=== PATIENT | male | born 1945 | race Caucasian/White ===

== ENCOUNTER 2016-04-06 06:55 | Outpatient (CLI) | payer MEDICARE, BC ==
[~2016-04-06] VITALS: Ht 185.4 cm; Wt 93.2 kg
--- NOTE | ~2016-04-06 | HEMODYNAMI ---
PATIENT:HILL JOYCE MEDICAL RECORD: [id number] : 43 LOCATION:D.CAT ADMISSION DATE: 04/06/16 Generatedon:04/06/201610:14 Patient name: HILL JOYCE Patient #: [id number] SSN: [id number] : 1945 Date of study: 04/06/2016 Page: Of Hemodynamic Procedure Report Patient Data Patient Demographics Procedure consent was obtained First Name: HILL Gender: Male Last Name: MARIA DEL CARMEN : 1945 [facility] Initial: C Age: 71 year(s) Patient #: [id number] Race: Unknown SSN: [id number] Additional ID: [id number] Contact details Address: [address] [place] [address] State: [place] City: [place] Zip code: [address] Past Medical History Allergies: No known allergies Admission Admission Data Admission Date: 04/06/2016 Admission Time: 6:55 Arrival Date: 04/06/2016 Arrival Time: 0:00 Admit Source: Other Height (in.): 73 BSA: 2.19 (m2) Height (cm.): 185.42 BMI: 27.44 (kg/m2) Weight (lbs.): 208 Weight (kg.): 94.35 Lab Results Lab Result Date: 04/06/2016 Lab Result Time: 0:00 Biochemistry Name Units Result Min Max BUN mg/dl 16 --(---*)-- 7 18 Creatinine mg/dl 1.2 --(---*)-- 0.6 1.3 CBC Name Units Result Min Max Hemoglobin g/dl 13.4 -*(----)-- 13.5 17.5 Procedure Procedure Types Cath Procedure Diagnostic Procedure LHC LHC w/Coronaries w/Grafts PCI Procedure Coronary Stent Initial Miscellaneous Procedures Moderate Sedation up to 15 minutes Procedure Description Procedure Date Procedure Date: 04/06/2016 Procedure Start Time: 9:41 Procedure End Time: 10:13 Procedure Staff Name Function Diego Gilliland MD Performing Physician Katina Lopez RT Scrub Jennifer Watt RN Nurse Lobito Weinstein RT Pan Tank Worker Shannan Dunlap RT Monitor Procedure Data Cath Procedure Fluoroscopy Diagnostic fluoroscopy Total fluoroscopy Time: 7.6 time: 7.6 min min Diagnostic fluoroscopy Total fluoroscopy dose: 408 dose: 408 mGy mGy Contrast Material Contrast Material Type Amount (ml) Isovue 300 133 Entry Location Entry Primary Successful Side Size Upsize Upsize Entry Closure Succes sful Closure Location (Fr) 1 (Fr) 2 (Fr) Remarks Device Remarks Femoral Right 5 Fr 6 Fr Exoseal artery Short Estimated blood loss: 10 ml Diagnostic catheters Device Type Used For End Catheter Placement Cordis 5Fr JL 4.0 Procedure Catheter (MP) Diagnostic Infinity 5Fr Procedure IM catheter Diagnostic Infinity 5Fr Procedure AR MOD Catheter Cordis 5Fr Pigtail LV Angiography Catheter (MP) Procedure Complications No complications Procedure Medications Medication Administration Route Dosage Oxygen NC 2 l/min Heparin Flush Bag added to field 2 bags (1000units/500ml NS) Lidocaine 2% added to field 20 Fentanyl I.V. Versed I.V. 1 mg Fentanyl I.V. 50 mcg Versed I.V. 1 mg Fentanyl I.V. 25 mcg Versed I.V. 0.5 mg Fentanyl I.V. 25 mcg Versed I.V. 0.5 mg Fentanyl I.V. 25 mcg Versed I.V. 0.5 mg Heparin Bolus I.V. 9300 units Fentanyl I.V. 25 mcg Versed I.V. 0.5 mg Plavix P.O. 600 mg Hemodynamics Rest BSA: 2.19 (m2) HGB: 13.4 (g/dl) O2 Consumption: Estimated: 233.43 (ml/min) O2 Co nsumption indexed: Estimated:106.59 (ml/min/m) Heart Rate: 47 (bpm) Pressure Samples Time Site Value (mmHg) Purpose Heart Use Rate(bpm) 9:54 LV 126/9,25 Snapshot 54 9:54 AO 140/58(94) Pullback 55 9:54 LV 132/13,30 Pullback 55 Gradients Valve Time Site 1 Site 2 Mean SEP/DFP Peak To Heart Use (mmHg) (sec/min) Peak Rate (mmHg) (bpm) Aortic 9:54 LV AO 0 20 0 55 132/13,30 140/58(94) Calculations Valve P-P Mean Valve Index Valve Source Name Gradient Area Flow (cm2) Aortic 0 0 0 0 Snapshots Pre Cath Intra NCS Post Cath Vital Signs Time Heart Resp SPO2 NIBP (mmHg) Rhythm Pain Sedation Rate (ipm) (%) Status Level (bpm) 9:12:08 46 19 98 143/84(101) NSR 0 (11) 10(A) , No pain 9:16:31 46 18 97 124/73(92) NSR 0 (11) 10(A) , No pain 9:20:44 48 16 93 120/72(85) NSR 0 (11) 9(A) , No pain 9:24:56 49 19 98 124/72(87) NSR 0 (11) 9(A) , No pain 9:29:10 49 17 98 125/72(82) NSR 0 (11) 9(A) , No pain 9:34:05 49 18 98 118/70(83) NSR 0 (11) 9(A) , No pain 9:38:21 48 19 98 132/65(90) NSR 0 (11) 9(A) , No pain 9:42:43 49 17 98 123/63(89) NSR 0 (11) 9(A) , No pain 9:46:59 54 16 96 114/68(88) NSR 0 (11) 9(A) , No pain 9:51:09 55 16 96 123/71(88) NSR 0 (11) 9(A) , No pain 9:56:00 54 17 97 130/71(84) NSR 0 (11) 9(A) , No pain 10:00:16 54 16 96 117/66(79) NSR 0 (11) 9(A) , No pain 10:04:32 56 18 97 111/57(80) NSR 0 (11) 9(A) , No pain 10:08:46 55 17 93 115/61(80) NSR 0 (11) 9(A) , No pain 10:13:00 55 7 95 113/59(87) NSR 0 (11) 9(A) , No pain Medications Time Medication Route Dose Verified Delivered Reason Notes Effectiveness by by 9:13:42 Oxygen NC 2 Jennifer Jennifer used for l/min Watt Watt white sidewall tire buffer RN 9:13:50 Heparin Flush added 2 Jennifer Jennifer used for Bag to bags Watt Watt procedure (1000units/500ml RN RN NS) 9:13:58 Lidocaine 2% added 20ml Jennifer Jennifer used for to vial Watt Watt procedure RN RN 9:23:12 Fentanyl I.V. Jennifer Jennifer for sedation Shukri Watt RN RN 9:23:18 Versed I.V. 1 mg Jennifer Jennifer for sedation Shukri Watt RN RN 9:38:13 Fentanyl I.V. 50 Jennifer Jennifer for sedation mcg Shukri Watt RN RN 9:38:17 Versed I.V. 1 mg Jennifer Jennifer for sedation Shukri Watt RN RN 9:40:54 Fentanyl I.V. 25 Jennifer Jennifer for sedation mcg Shukri Watt RN RN 9:40:57 Versed I.V. 0.5 Jennifer Jennifer for sedation mg Shukri Watt RN RN 9:43:32 Fentanyl I.V. 25 Jennifer Jennifer for sedation mcg Shukri Watt RN RN 9:43:36 Versed I.V. 0.5 Jennifer Jennifer for sedation mg Shukri Watt RN RN 9:58:34 Fentanyl I.V. 25 Jennifer Jennifer for sedation mcg Shukri Watt RN RN 9:58:37 Versed I.V. 0.5 Jennifer Jennifer for sedation mg Shukri Watt RN RN 9:59:13 Heparin Bolus I.V. 9300 Jennifer Jennifer for verifi ed units Shukri Watt anticoagulation with RN MYRIAM gilliland 10:05:43 Fentanyl I.V. 25 Jennifer Jennifer for sedation mcg Shukri Watt RN RN 10:05:51 Versed I.V. 0.5 Jennifer Jennifer for sedation mg Shukri Watt RN RN 10:10:57 Plavix P.O. 600 Jennifer Jennifer for mg Shukri Watt antiplatelet RN RN therapy Procedure Log Time Note 9:00:39 Lobito Weinstein RT(R) sent for patient. Start room use. 9:06:19 Diagnostic Cath Status : Elective 9:06:46 Time tracking: Regular hours 9:06:50 Plan of Care:Hemodynamics will remain stable., Cardiac rhythm will remain stable., Comfort level will be maintained., Respiratory function will remain adequate., Patient/ family verbilizes understanding of procedure., Procedure tolerated without complication., Recovers from procedure without complications.. 9:07:14 Patient received from Pre/Post Procedure Room to CCL 2 Alert and oriented. Tansferred to table in Supine position. 9:07:15 Warm blankets applied, and sahnia hugger turned on for patient comfort. 9:07:15 Correct patient and procedure confirmed by team. 9:07:17 Signed procedure consent form obtained from patient. 9:07:19 ECG and BP/O2 sat monitors applied to patient. 9:10:54 Vital chart was started 9:10:56 Baseline sample Acquired. 9:11:01 Rhythm: sinus rhythm 9:11:03 Full Disclosure recording started 9:12:01 H&P Date Dictated: 03/30/2016 Within 30 days and on chart., H&P Addendum completed by physician on day of procedure. (MUST COMPLETE FOR ALL OUTPATIENTS). 9:12:06 Pre-procedure instructions explained to patient. 9:12:08 Pre-op teaching completed and patient verbalized understanding. 9:12:09 Family in waiting room. 9:12:11 Patient NPO since Midnight. 9:12:20 Patient allergic to No known allergies 9:12:29 Is the patient allergic to Iodine/contrast media? No. 9:12:32 Is patient on blood thinner?Yes 9:12:35 ACC The patient was administered the following blood thiners within the last 24 hours: ACCAspirin 9:12:37 Patient diabetic? No. 9:12:40 Snore? Yes 9:12:43 Sleep apnea? No 9:12:53 Patient pain scale 0/10 ?. 9:13:07 IV patent on arrival in left hand with 0.9% NaCl at KVO. 9:13:20 Lab results completed and on chart. 9::42 Oxygen 2 l/min NC was given by Jennifer Watt RN; used for procedure; 9::42 Lab Result : BUN 16 mg/dl 9::42 Lab Result : Hemoglobin 13.4 g/dl 9::42 Lab Result : Creatinine 1.2 mg/dl 9:13:47 Right groin area was prepped with chlora-prep and draped in sterile fashion 9:13:49 Alarms reviewed by R. N. 9:13:49 Sharps counted by scrub and verified by R.N. 9:13:50 Heparin Flush Bag (1000units/500ml NS) 2 bags added to field was given by Jennifer Watt RN; used for procedure; 9:13:52 Physician arrived 9:13:54 --------ALL STOP TIME OUT------ 9:13:55 Final Timeout: patient, procedure, and site verified with staff and physician. All members of the team are in agreement. 9:13:57 Right groin site verified by team. 9:13:58 Lidocaine 2% 20ml vial added to field was given by Jennifer Watt RN; used for procedure; 9:14:01 Physical assessment completed. ASA score P 2 - A patient with mild systemic disease as per Diego Gilliland MD. 9:14:06 Sedation plan: IV Moderate Sedation Versed, Fentanyl 9:14:12 Use device set Femoral Dx 9:16:01 Acist Syringe opened to sterile field. 9:16:02 Bag Decanter opened to sterile field. 9:16:02 Medline Cath Pack opened to sterile field. 9:16:03 Terumo 5Fr Runnells Sheath opened to sterile field. 9:16:04 St Pavel 260cm J .035 wire opened to sterile field. 9:16:08 Acist Hand Control opened to sterile field. 9:16:09 Acist Manifold opened to sterile field. 9:16:09 Diagnostic Infinity 5Fr Multipack catheter opened to sterile field. 9:16:11 Tegaderm 4 x 4 opened to sterile field. 9:20:39 Patient Height : 185.42 inches 9:20:44 Patient Weight : 94.35 lbs 9:20:45 Admit Source: Other 9:20:47 Arrival Date: 04/06/2016 12:00:00 AM 9:21:13 Procedure type changed to Cath procedure, Diagnostic procedure, LHC, LHC w/Coronaries w/Grafts, PCI procedure, Coronary Stent Initial, Miscellaneous Procedures, Moderate Sedation up to 15 minutes 9:23:12 Fentanyl I.V. was given by Jennifer Watt RN; for sedation; 9:23:18 Versed 1 mg I.V. was given by Jennifer Watt RN; for sedation; 9:24:08 Zero performed for pressure channel P1 9:25:17 Zero performed for pressure channel P1 9:38:13 Fentanyl 50 mcg I.V. was given by Jennifer Watt RN; for sedation; 9:38:17 Versed 1 mg I.V. was given by Jennifer Watt RN; for sedation; 9:40:39 Procedure started. 9:40:54 Fentanyl 25 mcg I.V. was given by Jennifer Watt RN; for sedation; 9:40:57 Versed 0.5 mg I.V. was given by Jennifer Watt RN; for sedation; 9:41:29 Local anesthetic to right femoral artery with Lidocaine 2% by Diego Gilliland MD.INITIAL ACCESS ONLY 9:41:40 A 5 Fr sheath was inserted into the Right Femoral artery 9:43:32 Fentanyl 25 mcg I.V. was given by Jennifer Watt RN; for sedation; 9:43:36 Versed 0.5 mg I.V. was given by Jennifer Watt RN; for sedation; 9:44:53 J wire advanced. 9:45:40 A Cordis 5Fr JL 4.0 Catheter (MP) was advanced over the wire and used for Procedure. 9:45:45 LCA angiography performed. 9:46:18 Catheter removed. 9:46:25 A Diagnostic Infinity 5Fr IM catheter was advanced over the wire and used for Procedure. 9:46:32 MONTENEGRO to LAD angiography performed. 9:48:38 Catheter removed. 9:49:05 A Diagnostic Infinity 5Fr AR MOD Catheter was advanced over the wire and used for Procedure. 9:50:16 RCA angiography performed. 9:50:28 ACCDominant side:Left 9:51:25 SVG to OM angiography performed. 9:52:22 Catheter removed. 9:53:00 A Cordis 5Fr Pigtail Catheter (MP) was advanced over the wire and used for LV Angiography. 9:53:06 LV gram done using PECK 9:54:41 EF : 50 % 9:55:26 Catheter removed. 9:55:39 Merit BasixCompak Inflation Kit opened to sterile field. 9:55:40 Terumo 6Fr Runnells Sheath opened to sterile field. 9:55:40 Medtronic Launcher 6Fr AR 1.0 guide catheter opened to sterile field. 9:55:40 Shaw BMW [place] 2 J-tip 300cm 0.014 guide wir opened to sterile field. 9:55:45 Right Heart 9:55:54 Sheath upsized to a 6 Fr Short. 9:56:08 6 Fr AR 1 guide catheter was inserted over the wire 9:56:18 [facility] wire advanced. 9:58:34 Fentanyl 25 mcg I.V. was given by Jennifer Watt RN; for sedation; 9:58:37 Versed 0.5 mg I.V. was given by Jennifer Watt RN; for sedation; 9:59:13 Heparin Bolus 9300 units I.V. was given by Jennifer Watt RN; for anticoagulation; verified with dr. gilliland 10:03:33 Inflation Number: 1 A Medtronic Integrity 3.0 X 18 stent was prepped and advanced across the Dist CX. The stent was deployed at 12 CURTIS for 0:17 (min:sec). 10:05:43 Fentanyl 25 mcg I.V. was given by Jennifer Watt RN; for sedation; 10:05:51 Versed 0.5 mg I.V. was given by Jennifer Watt RN; for sedation; 10:06:00 Stent catheter was removed intact over wire. 10:07:22 Inflation Number: 1 A Medtronic Integrity 3.0 X 18 stent was prepped and advanced across the Mid CX. The stent was deployed at 15 CURTIS for 0:16 (min:sec). 10:07:38 Stent catheter was removed intact over wire. 10:08:40 Wire removed. 10:08:43 Guide catheter removed. 10:08:54 Cordis 6Fr Exoseal opened to sterile field. 10:09:07 Sheath removed intact; hemostasis achieved with Exoseal to the Right Femoral artery. 10:09:28 Procedure ended.(Physican Out) 10:10:24 Fluoroscopy time 07.60 minutes. 10:10:30 Fluoroscopy dose: 408 mGy 10:10:30 Flurop Dose total: 408 10:10:34 Contrast amount:Isovue 300 133ml. 10:10:35 Sharps counted by scrub and verified by R.N. 10:10:37 Insertion/operative site no bleeding no hematoma. 10:10:41 Post-op/insertion site Right Femoral artery dressed using a 4 x 4 and Tegaderm. 10:10:43 Post Procedure Pulses reassessed and unchanged 10:10:47 Post procedure rhythm: unchanged. 10:10:53 Estimated blood loss: 10 ml 10:10:55 Post procedure instruction explained to patient.Patient verbalizes understanding. 10:10:57 Plavix 600 mg P.O. was given by Jennifer Watt RN; for antiplatelet therapy; 10:11:14 Procedure and supply charges have been captured, reviewed, submitted and are correct. 10:12:43 Procedure Complication : No complications 10:12:47 Vital chart was stopped 10:12:49 See physician's report for complete and final results. 10:12:56 Report given to Outpatients. 10:13:01 Patient transfered to Outpatients with Stretcher. 10:13:03 Procedure ended. 10:13:03 Full Disclosure recording stopped 10:13:10 End room use (Document Last) Intervention Summary Intervention Notes Time ActionType Lesion and Equipment Action# Pressure Duration Attributes Used 10:03:33 Place stent Dist CX Medtronic 1 12 00:17 Integrity 3.0 X 18 stent 10:07:22 Place stent Mid CX Medtronic 1 15 00:16 Integrity 3.0 X 18 stent Device Usage Item Name Manufacture Quantity Catalog Hospital Part Current Minimal L ot# / Number Charge Number Stock Stock Serial# Code Acist Acist 1 21588 [id number] 533763 792824 20 Syringe Medical Systems Inc Bag Microtek 1 2002S 534457 11361 822411 5 DecKeyCAPTCHA [employer] Inc. Medline Cardinal 1 [id number] 152600 35793 328519 5 Cath Pack GroovinAds Terumo 5Fr Terumo 1 [id number] 571818 154367 211700 [address] Pavel 1 094399 954903 242785 931424 30 260cm J .035 wire Acist Hand Acist 1 82206 807031 758563 247737 5 [employer] Inc Acist Acist 1 32746 054613 212614 067832 5 GoLocal24 Medical Systems Inc Diagnostic Cardinal 1 [id number] 212914 95122 182586 30 [facility] 5Fr Multipack catheter Tegaderm 4 3M 1 [id number] 476355 663451 452937 5 x 4 Cordis 5Fr Cardinal 1 236146 5 JL 4.0 Health Catheter (MP) Diagnostic Cardinal 1 [id number] 988791 568527 979156 5 [facility] 5Fr IM catheter Diagnostic Cardinal 1 [id number] 948813 328095 320950 15 [facility] 5Fr AR MOD Catheter Cordis 5Fr Cardinal 1 [id number] 5 Pigtail Health Catheter (MP) Merit Merit 1 [id number] 411246 452843 028704 15 [employer] Inflation Kit Terumo 6Fr Terumo 1 [id number] 556826 563524 489775 40 Runnells Sheath Medtronic Medtronic 1 [id number] 231333 98369 457128 1 Launcher 6Fr AR 1.0 guide catheter Shaw BMW Shaw 1 [id number] 330715 454371 561599 5 [place] 2 Vascular J-tip 300cm 0.014 guide wir Medtronic Medtronic 2 [id number] 071809 260496 147546 1 0 [id number] Integrity 0 [id number] 3.0 X 18 stent Cordis 6Fr Cardinal 1 [id number] 646345 981018 069547 10 [facility] GroovinAds Signature Audit [place] Stage Time Signature Unsigned Intra-Procedure 04/06/2016 Shannan Dunlap 10:14:14 AM RT(R) Signatures Monitor : Shannan Dunlap Signature : RT Date : Time : [facility] [address] [place] [address]
[~2016-04-06 06:55] MED LIST: ASPIRIN325 MG PO; ATROVENT 0.06%15 ML NS; CATAPRES0.1 MG PO; HYDROCODON-ACE1 EAC7 PO; KEPPRA500 MG PO
[2016-04-06] MEDS ORDERED: BAYER CHEWABLE81 MG PO (07:19)
[2016-04-06 07:21] VITALS: Ht 185.4 cm; Wt 93.2 kg
[2016-04-06 07:40] LABS: BASOPHILS 0 % (0.0-2.0); EOSINOPHILS 1.2 % (0-7); HEMATOCRIT 39.7 % (42.0-54.0); HEMOGLOBIN 13.4 g/dL (13.5-17.5); LYMPHOCYTES 37.2 % (15-50); MCH 34.1 pg (26.0-34.0); MCHC 33.8 g/dL (31.0-37.0); MEAN PLATELET VOLUME 9.8 fL (7.4-10.4); MONOCYTES 13.1 % (2-11); NEUTROPHILS 48.5 % (40-80); PLATELET COUNT 145 10x3/uL (130-400); RBC 3.93 10x6/uL (4.20-6.10); RDW 14.2 % (11.5-14.5); WBC 4.3 10x3/uL (4.8-10.8)
[2016-04-06 07:58] LABS: ANION GAP 13.1 mmol/L (8-16); CALCIUM 8.9 mg/dL (8.5-10.1); CARBON DIOXIDE 24.9 mmol/L (21.0-32.0); CREATININE - SERUM 1.2 mg/dL (0.6-1.3)
[2016-04-06] MEDS ORDERED: PLAVIX75 MG PO (10:41)
--- NOTE | 2016-04-06 10:54 | NUR ---
1025 RECEIVED PT FROM ROUTE DELIVERY DRIVER, SEE ADMIT NOTE. PT IS DROWSY, AWAKENS EASILY TO VERBAL STIMULI. DENIES ANY C/O. DRESSING TO RIGHT GROIN IS CDI, NO BLEEDING OR HEMATOMA NOTED AT SITE. PEDAL PULSES PALPABLE, CAP REFILL TO TOES IS BRISK, FEET WARM TO TOUCH. NO FAMILY AT BEDSIDE. CALL LIGHT IN REACH, PT INSTRUCTED TO CALL FOR NEEDS AND VERBALIZES UNDERSTANDING.
--- NOTE | 2016-04-06 10:57 | NUR ---
1040 COLA SERVED PER PT REQUEST. PT DENIES ANY C/O. GROIN REMAINS CDI, NO BLEEDING OR HEMATOMA NOTED. PEDAL PULSES PALPABLE. RR EVEN AND UNLABORED. CALL LIGHT IN REACH.
--- NOTE | 2016-04-06 12:40 | NUR ---
1155 PT DENIES ANY C/O. DRESSING RIGHT GROIN IS CDI, COPY OPERATOR AT BEDSIDE.
--- NOTE | 2016-04-06 12:40 | NUR ---
1055 PT DENIES ANY C/O. RIGHT GROIN REMAINS STABLE WITH NO BLEEDING OR HEMATOMA NOTED. PT LIZZETTE PO FLUIDS WITH NO C/O NAUSEA.
--- NOTE | 2016-04-06 13:29 | NUR ---
1330 PT ALERT, DENIES ANY C/O. DRESSING TO RIGHT GROIN IS CDI, NO BLEEDING OR HEMATOMA NOTED AT SITE. PEDAL PULSES PALPABLE. PT TOLERATING FLUIDS WITH NO C/O, STATES DOES NOT WANT FOOD TRAY AT THIS TIME. CALL LIGHT IN REACH.
--- NOTE | 2016-04-06 14:20 | NUR ---
LEFT FA PIV D/C'D WITH CATHETER INTACT. ASSISTED PT TO SIDE OF BED TO GET DRESSED.
--- NOTE | 2016-04-06 14:25 | NUR ---
UP TO RESTROOM TO VOID.
--- NOTE | 2016-04-06 14:30 | NUR ---
DISCHARGE INSTRUCTIONS GIVEN. PT VERBALIZED UNDERSTANDING.
--- NOTE | 2016-04-06 14:32 | NUR ---
PT TAKEN OUT BY WHEELCHAIR BY CATH HOOKER MACHINE TENDER. LEFT FACILITY WITH FAMILY MEMBER AND ALL PERSONAL BELONGINGS.
--- NOTE | 2016-05-02 08:17 | OP ---
PATIENT NAME: HILL JOYCE MEDICAL RECORD: [id number] :43 LOCATION:D.CAT ADMISSION DATE: SURGEON: BILL PENN M.D. DATE OF OPERATION: 04/06/2016 Catheterization Report PROCEDURES PERFORMED: 1. Selective coronary angiography. 2. Left heart catheterization with ventriculogram. 3. Bypass angiography. 4. Left internal mammary injection. 5. PTCA and stent placement of the vein graft to the obtuse marginal branch. 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 REFERRING PHYSICIAN: Amish Peraza MD EQUIPMENT USED: Diagnostic 5-Nigerian JL4, AR modified catheter, mammary catheter, pigtail catheter. INTERVENTION: A 6-Nigerian AR1 guide, BMW guidewire, 3.0 x 18 mm Integrity stent, 3.0 x 18 mm Integrity stent. TECHNIQUE: A 5-Nigerian sheath was inserted in retrograde fashion in the right common femoral artery. Next, selective coronary angiography was performed in standard 5-Nigerian JL4 and AR modified catheters. Bypass angiography was performed using the AR modified catheter. Left heart catheterization was performed using pigtail catheter. The internal mammary was selected with internal mammary catheter. CORONARY ANATOMY: 1. Left main: Left main trunk is moderate in caliber. It gives rise to the LAD and circumflex. It has no obstruction. 2. LAD: This vessel is 100% occluded in the proximal segment. 3. Circumflex: This vessel is large in caliber and dominant. It gives rise to marginal branch in the distal segment. It appears to be diffusely diseased. 4. Right coronary: This vessel is small in caliber and nondominant. It is angiographically normal. 5. Left internal mammary artery to LAD: This is actually a sequential graft touching down on both the diagonal branch in the LAD. Both limbs are widely patent. There is no evidence of any stenosis. 6. Saphenous vein graft to the circumflex. Apparently, this touches down on 3 different branches of the circumflex. In the mid body, there is to a 80% to 90% stenosis. The distal body graft demonstrates a ruptured plaque with a 95% stenosis. 7. Left ventricle: Left ventricle is normal in size and function. No wall motion abnormalities are seen. Its ejection was 50% to 55%. DESCRIPTION OF INTERVENTION: A 6-Nigerian sheath was inserted in retrograde fashion in the right common femoral artery. Next, 100 units per kilogram of heparin was infused. A 6-Nigerian AR1 guide was advanced and engaged in the vein graft to the circumflex. Next, a BMW guidewire was placed in the distal body of the graft. The distal lesion was stented with a 3.0 x 18 mm Integrity stent at OPERATIVE REPORT [id number] HILL JOYCE C 12 atmospheres. Next, a 3.0 x 18 mm Integrity stent was placed in the mid body of the graft and deployed at 16 atmospheres. Injection revealed both stents to be widely patent with 0% residual stenosis. There is marked improvement in distal flow. At this point, the wire and guide were removed. IMPRESSION: Successful percutaneous transluminal coronary angioplasty and stent in the vein graft to the circumflex with 0% residual stenosis. TRANSINT:[id number] Voice Confirmation ID: [id number] DOCUMENT ID: [id number] BILL PENN M.D. at 0817 CC: [id number] DICTATION DATE: 04/06/16 1018 BIAZZI NITRATOR OPERATOR: 04/06/16 1222 DEP CLI 04/06/16 [facility] [address] [place] [address]
== END 2016-04-06 14:30 | disposition home or self-care (01) ==
LOC: D.CATH 06:55
PROVIDERS: Internal Medicine Cardiovascular Disease
DX: I25.119 Atherosclerotic heart disease of native coronary artery with unspecified angina pectoris (principal); I25.719 Atherosclerosis of autologous vein coronary artery bypass graft(s) with unspecified angina pectoris

== ENCOUNTER → 2016-06-05 14:04 | Outpatient (CLI) | payer MEDICARE, BC ==
[2016-04-06 07:21] VITALS: BMI 27.1
[~2016-06-05 14:04] MED LIST changes: +BAYER CHEWABLE81 MG PO; +PLAVIX75 MG PO
== END | disposition home or self-care (01) ==
LOC: D.US 14:04
DX: I65.23 Occlusion and stenosis of bilateral carotid arteries (principal)

== ENCOUNTER → 2017-08-22 16:19 | Outpatient (CLI) | payer MEDICARE, BC ==
[2016-04-06 07:21] VITALS: BMI 27.1
== END | disposition home or self-care (01) ==
LOC: D.US 08-20 13:30
DX: I65.23 Occlusion and stenosis of bilateral carotid arteries (principal)

== ENCOUNTER → 2019-02-28 09:09 | Outpatient (CLI) | payer MEDICARE, BC ==
[2016-04-06 07:21] VITALS: BMI 27.1
== END | disposition home or self-care (01) ==
LOC: D.US 01-10 13:00
PROVIDERS: ATTEND Internal Medicine Cardiovascular Disease
DX: I65.23 Occlusion and stenosis of bilateral carotid arteries (principal)

== ENCOUNTER → 2019-08-25 14:49 | Outpatient (CLI) | payer MEDICARE, BC ==
[2016-04-06 07:21] VITALS: BMI 27.1
== END | disposition home or self-care (01) ==
LOC: D.US 08-20 13:30
PROVIDERS: ATTEND Internal Medicine Cardiovascular Disease
DX: I65.23 Occlusion and stenosis of bilateral carotid arteries (principal)

== ENCOUNTER → 2019-10-21 13:09 | Outpatient (CLI) | payer MEDICARE, BC ==
[2016-04-06 07:21] VITALS: BMI 27.1
[2019-10-21 13:44] LABS: BASOPHILS 0 % (0-2); EOSINOPHILS 0.7 % (0-7); HEMATOCRIT 30.7 % (42.0-54.0); HEMOGLOBIN 10.3 g/dL (13.5-17.5); IMMATURE GRANULOCYTES 0.3 % (0-5); LYMPHOCYTES 47.5 % (15-50); MCH 36.7 pg (26.0-34.0); MCHC 33.6 g/dL (31.0-37.0); MCV 109.3 fL (80.0-100.0); MEAN PLATELET VOLUME 10.3 fL (7.4-10.4); MONOCYTES 7.7 % (2-11); NEUTROPHILS 43.8 % (40-80); RBC 2.81 10x6/uL (4.20-6.10); RDW 17.7 % (11.5-14.5)
[2019-10-21 13:47] LABS: PLATELET COUNT 206 10x3/uL (130-400)
== END | disposition home or self-care (01) ==
LOC: D.LAB 13:09
PROVIDERS: ATTEND Psychiatry & Neurology Neurology
DX: R56.9 Unspecified convulsions (principal)